=== PATIENT | male | born 1975 | race Caucasian/White ===

== ENCOUNTER 2022-03-07 08:51 | Day surgery (SDC) | payer OTHER ==
[~2022-03-07] VITALS: Ht 175.3 cm; Wt 109.7 kg
[~2022-03-07 08:51] MED LIST: NO HOME MEDICATIONS
[2022-03-07 09:11] VITALS: BP 137/95; PULSE 73; TEMP 97.6
[2022-03-07 10:30] VITALS: BP 130/87; PULSE 80
--- NOTE | 2022-03-07 10:30 | NUR ---
PT TO [facility]IA [facility]ART FROM [facility], WALKED TO CHAIR, AWAKE AND ALERT. FATHER IN ROOM, NO C/O, CALL LIGHT IN REACH AND COFFEE, MUFFIN GIVEN
[2022-03-07 10:45] VITALS: BP 135/89; PULSE 75
--- NOTE | 2022-03-07 10:45 | NUR ---
Dr into talk with pt
[2022-03-07 11:00] VITALS: BP 140/85; PULSE 74
--- NOTE | 2022-03-07 11:00 | NUR ---
reviewed discharge inst. with pt on moderate sedation precautions, followup and activity with verbal understanding. iv d'cd intact. pt up and dressed, discharged at 1115 via w/c to car with father
== END 2022-03-07 11:15 | disposition home or self-care (01) ==
LOC: SDCO 08:51
DX: Z12.11 Encounter for screening for malignant neoplasm of colon (principal); E66.9 Obesity, unspecified
CPT/HCPCS: J2704; J7030